=== PATIENT | female | born 1985 | race Asian ===

== ENCOUNTER 2017-02-04 15:10 | Emergency (ER) | payer OTHER ==
[~2017-02-04] VITALS: Ht 157.5 cm; Wt 81.6 kg
[2017-02-04 16:40] VITALS: BP 149/83; TEMP 98.9
== END 2017-02-04 16:41 | disposition home or self-care (01) ==
LOC: ED 15:10
DX: M54.5 Low back pain (principal); M43.27 Fusion of spine, lumbosacral region; V43.62XA Car passenger injured in collision with other type car in traffic accident, initial encounter
CPT/HCPCS: 99282

== ENCOUNTER 2023-02-01 22:31 | Emergency (ER) | payer OTHER ==
[~2023-02-01] VITALS: Ht 160 cm; Wt 99.8 kg
[2023-02-01 22:34] VITALS: TEMP 98.4
[2023-02-02 00:20] LABS: PLATELET COUNT 188 K/uL (152-353)
[2023-02-02 00:23] LABS: POTASSIUM 4.1 mmol/L (3.6-5.2)
[2023-02-02 00:55] VITALS: BP 152/78
== END 2023-02-02 00:55 | disposition home or self-care (01) ==
LOC: ED 22:31
PROVIDERS: Internal Medicine
DX: N83.292 Other ovarian cyst, left side (principal)
CPT/HCPCS: 80053; 80307; 81000; 81025; 85027; 96372; 99283; J1885